=== PATIENT | female | born 1965 | race Caucasian/White ===

== ENCOUNTER → 2016-04-03 | Outpatient (REF) ==
[~2016-04-03] MED LIST: AMBIEN CR 12.12.5 MG PO; BUSPAR5 MG PO; CALCIUM 500 W/V1 TAB PO; CARAFATE 1GM1 G PO; COLACE 100100 MG/CAP PO; FLEXERIL 1010 MG/TAB PO; INDERAL 20MG20 MG PO; NAPROSYN500 MG PO; PRILOSEC PO; PROTONIX 40MG T40 MG PO; ULTRAM 50MG TAB50 MG PO; VICODIN 5/300 PO; XANAX 1MG1 MG PO; ZESTRIL 10MG10 MG PO; ZOFRAN 4MG T4 MG/TAB PO
[2016-04-03 13:12] LABS: THYROID STIMULATING HORMONE 0.932 uIU/mL (0.465-4.680)
== END ==
LOC: ZLAB.WCH 12:13
PROVIDERS: Family Medicine
DX: Z01.89 Encounter for other specified special examinations (principal)

== ENCOUNTER → 2018-12-26 | Outpatient (REF) | LOC: COL.CARD 15:55 | DX: Z01.818 Encounter for other preprocedural examination (principal) ==